=== PATIENT | female | born 1960 ===

== ENCOUNTER 2018-02-15 11:44 | Emergency (ER) | payer MEDICAID ==
[2018-02-15 11:44] VITALS: BMI 31.1
[2018-02-15 12:00] VITALS: BP 122/76; PULSE 94; RESP 18; TEMP 98.4; O2SAT 98
[2018-02-15] MEDS ORDERED: Naproxen 550 mg Tab PO STA (12:07)
[2018-02-15] MEDS ORDERED: Naproxen 550 mg Tab PO ONE (12:16)
--- NOTE | 2018-02-15 12:23 | C.PDOC ---
History Of Present Illness 57 year old female presents to the ED for evaluation of left 3rd toe pain for the last 2 weeks. Patient states she hit her foot against the bed frame. Notes she was previously seen at a clinic and x-rays showed fracture to the left 5th toe. Patient denies pain to left 5th toe. Denies fever, vomiting, nausea, and other associated symptoms. Time Seen by Provider: 02/15/18 11:50 Chief Complaint (Nursing): Lower Extremity Problem/Injury History Per: Patient History/Exam Limitations: no limitations Onset/Duration Of Symptoms: Days Current Symptoms Are (Timing): Still Present Past Medical History Reviewed: Historical Data, Nursing Documentation, Vital Signs Vital Signs: Last Vital Signs Temp 98.4 F 02/15/18 11:56 Pulse 94 H 02/15/18 11:56 Resp 18 02/15/18 11:56 BP 122/76 02/15/18 11:56 Pulse Ox 98 02/15/18 12:45 - Medical History PMH: Fractures (RIGHT LEG WITH SURGERY) Denies: Colonic Polyps, TIA Surgical History: ( x 2) Denies: Endoscopy Family History: States: Unknown Family Hx - Social History Hx Alcohol Use: No Hx Substance Use: No - Immunization History Hx Tetanus Toxoid Vaccination: No Hx Influenza Vaccination: No Hx Pneumococcal Vaccination: No Review Of Systems Except As Marked, All Systems Reviewed And Found Negative. Constitutional: Negative for: Fever, Chills Gastrointestinal: Negative for: Nausea, Vomiting Musculoskeletal: Positive for: Foot Pain (left 3rd toe pain ) Physical Exam - Physical Exam Appears: Non-toxic, No Acute Distress Skin: Normal Color, Warm, Dry Head: Atraumatic, Normacephalic Eye(s): bilateral: Normal Inspection, PERRL, EOMI Ear(s): Bilateral: Normal Oral Mucosa: Moist Chest: Symmetrical Cardiovascular: Rhythm Regular Respiratory: Normal Breath Sounds, No Rales, No Rhonchi, No Wheezing Extremity: Normal ROM, Tenderness (left 3rd toe tenderness ), Capillary Refill ( less than 2 seconds ), No Deformity, Swelling (minimal swelling) Pulses: Left Dorsalis Pedis: Normal, Right Dorsalis Pedis: Normal Neurological/Psych: Oriented x3, Normal Speech Gait: Steady ED Course And Treatment O2 Sat by Pulse Oximetry: 98 (RA) Pulse Ox Interpretation: Normal Medical Decision Making Medical Decision Making: Impression: 3rd toe tenderness, minimal swelling Plan: -Naproxen -X-ray: left foot Re-evaluation: X-ray of left foot reviewed and left 5th toe fracture was noted. Patients toe was splinted. Advised to follow up with specialist and prescribed naproxen for pain. Patient is stable for discharge home. Disposition - Disposition Referrals: [facility] [Outside] [facility] [place] [Outside] Disposition: HOME/ ROUTINE Disposition Time: 12:18 Condition: STABLE Additional Instructions: follow up with specialist. return to er with worsening symptoms or concerns. Prescriptions: Naproxen 500 mg PO BID PRN #14 tab PRN Reason: Pain, Mild (1-3) Instructions: Toe Fracture Forms: LIF[employer]ODEL[employer] (Austrian) Print Language: ALBANIAN - Clinical Impression Clinical Impression: Toe fracture - Scribe Statement The provider has reviewed the documentation as recorded by the Scribe (Guera Nunez) Provider Attestation: All medical record entries made by the Scribe were at my direction and personally dictated by me. I have reviewed the chart and agree that the record accurately reflects my personal performance of the history, physical exam, medical decision making, and the department course for this patient. I have also personally directed, reviewed, and agree with the discharge instructions and disposition.
--- NOTE | 2018-02-15 13:15 | RAD ---
Date of service: 02/15/2018 PROCEDURE: Left Foot Radiographs. HISTORY: left 3rd toe trauma COMPARISON: None. FINDINGS: BONES: A nondisplaced 3rd proximal phalangeal fracture present may be acute or subacute. Correlate clinically. JOINTS: First metatarsal-phalangeal joint arthrosis SOFT TISSUES: Normal. OTHER FINDINGS: None. IMPRESSION: A nondisplaced 3rd proximal phalangeal fracture present may be acute or subacute. Correlate clinically. First metatarsal-phalangeal joint arthrosis
== END 2018-02-15 13:02 | disposition home or self-care (01) ==
LOC: C.ER 11:44
DX: S92.515A Nondisplaced fracture of proximal phalanx of left lesser toe(s), initial encounter for closed fracture (principal); W22.03XA Walked into furniture, initial encounter

== ENCOUNTER 2018-07-10 11:34 | Emergency (ER) | payer MEDICAID ==
[2018-07-10 11:46] VITALS: BMI 28.3
--- NOTE | 2018-07-10 12:35 | C.PDOC ---
History Of Present Illness 58 y/o female pt presents to the ER c/o RUQ abdominal pain for x2 days. Associated sx includes vomiting. Pt denies nausea, diarrhea, fever, chills and back pain. Time Seen by Provider: 07/10/18 12:03 Chief Complaint (Nursing): Abdominal Pain History Per: Patient History/Exam Limitations: no limitations Onset/Duration Of Symptoms: Days (x2) Current Symptoms Are (Timing): Still Present Location Of Pain/Discomfort: RUQ Past Medical History Reviewed: Historical Data, Nursing Documentation, Vital Signs Vital Signs: Last Vital Signs Temp 98.4 F 07/10/18 11:46 Pulse 105 H 07/10/18 11:46 Resp 17 07/10/18 11:46 BP 127/79 07/10/18 11:46 Pulse Ox 96 07/10/18 11:46 - Medical History PMH: Fractures (RIGHT LEG FX/SURGERY) Surgical History: ( x 2) Family History: States: Unknown Family Hx - Social History Hx Alcohol Use: No Hx Substance Use: No - Immunization History Hx Tetanus Toxoid Vaccination: No Hx Influenza Vaccination: No Hx Pneumococcal Vaccination: No Review Of Systems Except As Marked, All Systems Reviewed And Found Negative. Constitutional: Negative for: Fever, Chills Gastrointestinal: Positive for: Vomiting, Abdominal Pain (RUQ). Negative for: Nausea, Diarrhea Musculoskeletal: Negative for: Back Pain Physical Exam - Physical Exam Appears: Non-toxic, No Acute Distress Skin: Warm, Dry Head: Normacephalic Eye(s): bilateral: Normal Inspection Oral Mucosa: Moist Throat: Normal Neck: Normal ROM, Supple Chest: Symmetrical Cardiovascular: Rhythm Regular Respiratory: Normal Breath Sounds Gastrointestinal/Abdominal: Soft, Tenderness (RUQ), No Distention, No Guarding, No Rebound Back: No CVA Tenderness Neurological/Psych: Oriented x3, Normal Speech ED Course And Treatment - Laboratory Results Result Diagrams: 07/10/18 12:05 07/10/18 12:05 O2 Sat by Pulse Oximetry: 96 (RA) Pulse Ox Interpretation: Normal - Other Rad Abdominal US X-Ray: Read By Radiologist Interpretation: Accession No. : [id number]. Patient Name / ID : KRISTINA OVIEDO / [id number]. Exam Date : 07/10/2018 14:32:54 ( Approved ). Study Comment : Sex / Age : F / 58Y. Creator : Delmy Long MD. Dictator : Delmy Long MD. Dioramist : Web Engineer : Delmy Long MD. Approver2 : Report Date : 07/10/2018 15:36:24. My Comment : . Date of service: 07/10/2018. HISTORY: Pain RUQ. COMPARISON: None available. TECHNIQUE: Sonographic evaluation of the right upper quadrant of the abdomen. FINDINGS: LIVER: Measures 14.5 cm in length. Echogenic liver may be seen in setting of hepatic parenchymal disease or fatty infiltration. No focal hepatic mass identified. The main portal vein appears patent with normal directional flow. No intrahepatic bile duct dilatation. GALLBLADDER: No gallstones. No gallbladder wall thickening or pericholecystic edema. Negative sonographic Antoine's sign as assessed by the access clinician. COMMON BILE DUCT: Measures 2 mm. PANCREAS: Not well-visualized. RIGHT KIDNEY: Measures approximately 10.3 x 4.6 x 4.1 cm. 1.7 x 1.3 x 2.0 cm complex septated lower pole cyst. Evidence of 8 mm echogenic focus associated with this cyst noted at the posterior wall. AORTA: Limited visualization appears grossly unremarkable. IVC: Limited visualization appears grossly unremarkable. OTHER FINDINGS: None . IMPRESSION: Echogenic liver may be seen in setting of hepatic parench ymal disease or fatty infiltration. 1.7 x 1.3 x 2.0 cm complex septated right lower pole cyst with associated 8 mm echogenic focus, possibly calcification however posterior acoustic shadowing is not appreciated on the limited submitted views. - CT Scan/US Abdominal CT Other Rad Studies (CT/US): Read By Radiologist, Radiology Report Reviewed CT/US Interpretation: Accession No. : [id number]. Patient Name / ID : KRISTINA OVIEDO / [id number]. Exam Date : 07/10/2018 17:25:20 ( Approved ). Study Comment : Sex / Age : F / 58Y. Creator : Tanna Deluna. Dictator : Vargas Gordon MD. Dioramist : Web Engineer : Vargas Gordon MD. Approver2 : Report Date : 07/10/2018 17:40:28. My Comment : . Date of service: 07/10/2018. PROCEDURE: CT Abdomen and Pelvis with contrast. HISTORY: Vomiting, right flank pain. COMPARISON: 2018 abdominal ultrasound. Summary of findings on the comparison examination: 1.7 x 1.3 x 2.0 cm complex septated right lower pole cyst with associated 8 mm echogenic focus, possibly calcification however posterior acoustic shadowing is not appreciated on the limited submitted views. TECHNIQUE: Intravenous contrast dose: 100 cc Omnipaque 300. Radiation dose: Total exam DLP = 941.83 mGy-cm. This CT exam was performed using one or more of the following dose reduction techniques: Automated exposure control, adjustment of the mA and/or kV according to patient size, and/or use of iterative reconstruction technique. FINDINGS: LOWER THORAX: Unremarkable. Incidental finding(s): Calcified granuloma 4 mm right lower lobe. LIVER: Unremarkable. No gross lesion or ductal dilatation. GALLBLADDER AND BILE DUCTS: Unremarkable. PANCREAS: Unremarkable. No gross lesion or ductal dilatation. SPLEEN: Unremarkable. ADRENALS: Unremarkable. No mass. KIDNEYS AND URETERS: Unremarkable. No hydronephrosis. No solid mass. CT correlate to findings on recent ultrasound is a 1.7 x 2.4 cm simple cyst. No associated calcifications. No internal septa. VASCULATURE: Unremarkable. No aortic aneurysm. Atherosclerotic calcification and mural plaque present. Findings are seen throughout the aorta. BOWEL: Unremarkable. No obstruction. No gross mural thickening. APPENDIX: Normal appendix. PERITONEUM: Unremarkable. No free fluid. No free air. LYMPH NODES: Unremarkable. No enlarged lymph nodes. BLADDER: Unremarkable. REPRODUCTIVE: Unremarkable. BONES: No acute fracture. OTHER FINDINGS: None. IMPRESSION: No significant or acute findings to account for/ related to the clinical presentation. Additional benign and/or incidental findings described above. Progress Note: Labs ordered and reviewed. Pending Abdominal US to rule out cholecystitis. Administered 30mg IV Toradol for pain control. K is 3.3, was given KCL po. Patient is stable to be d/c home with PMD/Clinic follow up. Disposition - Disposition Disposition Time: 18:28 Condition: STABLE Additional Instructions: Follow up with PMD/Clinic within 1-2 days. Return to ED if feel worse. Prescriptions: Dicyclomine [Bentyl] 20 mg PO TID #30 tab Ondansetron ODT [Zofran ODT] 4 mg PO .Q4-6H PRN #20 odt PRN Reason: Nausea/Vomiting Instructions: Acute Abdomen (Belly Pain) Forms: ALEXANDALEXA (Maltese) Print Language: FAROESE - Clinical Impression Clinical Impression: Abdominal pain - PA / IVORY POLISHER / Resident Statement / has reviewed & agrees with the documentation as recorded. - Scribe Statement The provider has reviewed the documentation as recorded by the Lisa Robles Do All medical record entries made by the Scribe were at my direction and personally dictated by me. I have reviewed the chart and agree that the record accurately reflects my personal performance of the history, physical exam, medical decision making, and the department course for this patient. I have also personally directed, reviewed, and agree with the discharge instructions and disposition.
[2018-07-10 13:25] LABS: BASO % 0.5 % (0.0-2.0); EOS # 0.1 K/uL (0.0-0.7); EOS % 2.8 % (0.0-4.0); HEMOGLOBIN 13.5 g/dL (11.0-16.0); LYMPH # 1.2 K/uL (1.0-4.3); LYMPH % 22.3 % (20.0-40.0); MEAN CELL VOLUME 86.3 fL (81.0-99.0); MEAN CORPUSCULAR HEMOGLOBIN 28.4 pg (27.0-31.0); MEAN CORPUSCULAR HGB CONC 32.9 g/dL (33.0-37.0); MEAN PLATELET VOLUME 8.6 fL (7.2-11.7); MONO # 0.5 K/uL (0.0-0.8); MONO % 10.2 % (0.0-10.0); NEUT # 3.3 K/uL (1.8-7.0); NEUT % 64.2 % (50.0-75.0); NRBC % 0.1 % (0.0-2.0); RBC 4.76 Mil/uL (3.80-5.20); RED CELL DISTRIBUTION WIDTH 13.1 % (11.5-14.5); WHITE BLOOD COUNT 5.2 K/uL (4.8-10.8)
[2018-07-10 13:29] LABS: SQUAMOUS EPITHIAL 11 /hpf (0-5); URINE BACTERIA RARE (<OCC); URINE BILIRUBIN NEGATIVE (NEGATIVE); URINE BLOOD 1+ (NEGATIVE); URINE CLARITY Hazy (Clear); URINE COLOR Amber (YELLOW); URINE GLUCOSE (UA) NORMAL (Normal); URINE LEUKOCYTE ESTERASE TRACE Leu/uL (Negative); URINE PROTEIN NEGATIVE (NEGATIVE)
[2018-07-10 13:42] LABS: ALB/GLOB RATIO 1.8 (1.0-2.1); ALBUMIN 4.3 g/dL (3.5-5.0); ALT/SGPT 21 U/L (9-52); AMYLASE 64 U/L (30-110); AST/SGOT 23 U/L (14-36); BLOOD UREA NITROGEN 19 mg/dL (7-17); CALCIUM 8.8 mg/dl (8.6-10.4); GFR NON-AFRICAN AMERICAN > 60; LIPASE 51 U/L (23-300)
--- NOTE | 2018-07-10 15:40 | US ---
Date of service: 07/10/2018 HISTORY: Pain RUQ COMPARISON: None available. TECHNIQUE: Sonographic evaluation of the right upper quadrant of the abdomen. FINDINGS: LIVER: Measures 14.5 cm in length. Echogenic liver may be seen in setting of hepatic parenchymal disease or fatty infiltration. No focal hepatic mass identified. The main portal vein appears patent with normal directional flow. No intrahepatic bile duct dilatation. GALLBLADDER: No gallstones. No gallbladder wall thickening or pericholecystic edema. Negative sonographic Antoine's sign as assessed by the roller maker. COMMON BILE DUCT: Measures 2 mm. PANCREAS: Not well-visualized. RIGHT KIDNEY: Measures approximately 10.3 x 4.6 x 4.1 cm. 1.7 x 1.3 x 2.0 cm complex septated lower pole cyst. Evidence of 8 mm echogenic focus associated with this cyst noted at the posterior wall. AORTA: Limited visualization appears grossly unremarkable. IVC: Limited visualization appears grossly unremarkable. OTHER FINDINGS: None . IMPRESSION: Echogenic liver may be seen in setting of hepatic parenchymal disease or fatty infiltration. 1.7 x 1.3 x 2.0 cm complex septated right lower pole cyst with associated 8 mm echogenic focus, possibly calcification however posterior acoustic shadowing is not appreciated on the limited submitted views.
[2018-07-10 15:59] VITALS: O2SAT 96
[2018-07-10] MEDS ORDERED: Iohexol 300 100 ML IJ ONE (17:00)
--- NOTE | 2018-07-10 17:58 | CT ---
Date of service: 07/10/2018 PROCEDURE: CT Abdomen and Pelvis with contrast HISTORY: Vomiting, right flank pain. COMPARISON: 2018 abdominal ultrasound. Summary of findings on the comparison examination: 1.7 x 1.3 x 2.0 cm complex septated right lower pole cyst with associated 8 mm echogenic focus, possibly calcification however posterior acoustic shadowing is not appreciated on the limited submitted views. TECHNIQUE: Intravenous contrast dose: 100 cc Omnipaque 300. Radiation dose: Total exam DLP = 941.83 mGy-cm. This CT exam was performed using one or more of the following dose reduction techniques: Automated exposure control, adjustment of the mA and/or kV according to patient size, and/or use of iterative reconstruction technique. FINDINGS: LOWER THORAX: Unremarkable. Incidental finding(s): Calcified granuloma 4 mm right lower lobe. LIVER: Unremarkable. No gross lesion or ductal dilatation. GALLBLADDER AND BILE DUCTS: Unremarkable. PANCREAS: Unremarkable. No gross lesion or ductal dilatation. SPLEEN: Unremarkable. ADRENALS: Unremarkable. No mass. KIDNEYS AND URETERS: Unremarkable. No hydronephrosis. No solid mass. CT correlate to findings on recent ultrasound is a 1.7 x 2.4 cm simple cyst. No associated calcifications. No internal septa. VASCULATURE: Unremarkable. No aortic aneurysm. Atherosclerotic calcification and mural plaque present. Findings are seen throughout the aorta BOWEL: Unremarkable. No obstruction. No gross mural thickening. APPENDIX: Normal appendix. PERITONEUM: Unremarkable. No free fluid. No free air. LYMPH NODES: Unremarkable. No enlarged lymph nodes. BLADDER: Unremarkable. REPRODUCTIVE: Unremarkable. BONES: No acute fracture. OTHER FINDINGS: None. IMPRESSION: No significant or acute findings to account for/ related to the clinical presentation. Additional benign and/or incidental findings described above.
[2018-07-10] MEDS ORDERED: Potassium Chloride 20 mEq/15 ml LIQ UD PO STA (18:21)
[2018-07-10 18:44] VITALS: BP 100/65; PULSE 74; RESP 17; TEMP 97.8
[2018-07-10] MEDS ORDERED: Potassium Chloride 20 mEq/15 ml LIQ UD ONE (18:54)
== END 2018-07-10 18:52 | disposition home or self-care (01) ==
LOC: C.ER 11:34
DX: R10.11 Right upper quadrant pain (principal)
CPT/HCPCS: 74177; 76705; 80053; 81001; 82150; 83690; 85025; 96374; 99285; J1885; Q9967